=== PATIENT | female | born 1980 | race Two or more races ===

== ENCOUNTER 2017-12-08 10:13 | Emergency (ER) | payer OTHER ==
[~2017-12-08] VITALS: Ht 165.1 cm; Wt 62.6 kg
== END 2017-12-08 22:08 ==
LOC: ER 10:13
DX: R42 Dizziness and giddiness (principal)

== ENCOUNTER 2020-06-30 11:14 | Outpatient (CLI) | payer OTHER | END 2020-06-30 12:45 | disposition home or self-care (01) | LOC: NST 11:14 | PROVIDERS: ATTEND Obstetrics & Gynecology | DX: Z34.83 Encounter for supervision of other normal pregnancy, third trimester (principal) ==

== ENCOUNTER 2020-07-31 13:30 | Inpatient (IN) | payer OTHER ==
[~2020-07-31] VITALS: Ht 165.1 cm; Wt 72.6 kg
== END 2020-08-14 11:01 | disposition home or self-care (01) | DRG 807 ==
LOC: LDR 08-12 11:28 → OB/GYN 08-12 14:35
PROVIDERS: ADMIT Obstetrics & Gynecology; ATTEND Obstetrics & Gynecology
PROC: 10E0XZZ Delivery of Products of Conception, External Approach (ICD-10-PCS; principal; 2020-08-12)
PROC: 0KQM0ZZ Repair Perineum Muscle, Open Approach (ICD-10-PCS; 2020-08-12)
PROC: 0W8NXZZ Division of Female Perineum, External Approach (ICD-10-PCS; 2020-08-12)
PROC: 4A1HXFZ Monitoring of Products of Conception, Cardiac Rhythm, External Approach (ICD-10-PCS; 2020-08-12)
DX: O70.1 Second degree perineal laceration during delivery (principal); Z37.0 Single live birth; Z3A.40 40 weeks gestation of pregnancy; Z20.828 Contact with and (suspected) exposure to other viral communicable diseases

== ENCOUNTER 2024-10-11 05:27 | Day surgery (SDC) | payer OTHER ==
[2024-10-06 10:54] VITALS: BP 112/77
[2024-10-06 11:15] LABS: HEMATOCRIT 38.7 % (36.0-45.00); HEMOGLOBIN 12.8 g/dL (12.0-15.00); MEAN CELL VOLUME 91.8 fL (80.00-100.00); MEAN CORPUSCULAR HEMOGLOBIN 30.4 pg (27.00-32.0); MEAN CORPUSCULAR HGB CONC 33.1 g/dl (32.0-36.0); PLATELET COUNT 279 K/uL (150-450); RED BLOOD COUNT 4.21 M/uL (4.00-6.00); RED CELL DISTRIBUTION WIDTH 14.4 % (11.5-14.5)
[2024-10-06 11:29] LABS: PARTIAL THROMBOPLASTIN TIME 30.7 SECONDS (22.0-34.0); PROTHROMBIN TIME 10.9 SECONDS (9.0-11.5)
[2024-10-06 14:18] LABS: ALBUMIN 3.7 gm/dL (3.4-5.0); BILIRUBIN TOTAL 0.41 mg/dL (0.3-1.2); CALCIUM 9.6 mg/dL (8.5-10.1); CREATININE SERUM 0.71 mg/dL (0.55-1.02); GFR 90.72; GLOBULINA 3.9 G/DL (2.4-3.5); POTASSIUM 4.63 mEq/L (3.5-5.1); TOTAL PROTEIN 7.6 gm/dL (6.4-8.2)
[~2024-10-11] VITALS: Ht 165.1 cm; Wt 59.0 kg
[2024-10-11] MEDS ORDERED: POVIDONE-IODINE 118 ML BOTT TOP ONE (07:09)
== END 2024-10-11 14:10 | disposition home or self-care (01) ==
LOC: CIR.AMB 05:27
PROVIDERS: ATTEND Obstetrics & Gynecology Maternal & Fetal Medicine
DX: N84.0 Polyp of corpus uteri (principal)